=== PATIENT | female | born 1955 | race Caucasian/White ===

== ENCOUNTER 2017-01-12 19:07 | Emergency (ER) | payer BC, OTHER ==
[~2017-01-12] VITALS: Ht 152.4 cm; Wt 82.5 kg
[2017-01-12 19:28] VITALS: Ht 152.4 cm; Wt 82.5 kg
[2017-01-12] MEDS ORDERED: HYDR-3011 PO (19:39)
[2017-01-12] MEDS ORDERED: ACYC800T57 PO (19:39)
[2017-01-12] MEDS ORDERED: GABA300C16 PO (19:39)
[2017-01-12] MEDS ORDERED: IBUP-1542 PO (19:39)
--- NOTE | 2017-01-12 19:44 | ERD ---
ER Documentation Chief Complaint Date/Time DATE: 01/12/17 TIME: 19:42 Chief Complaint RASH ON LEFT BREAST IDENTIFIED 5 DAYS AGO HPI 61-year-old female presents in emergency department for complaints of left breast rash left upper back rash itching pain for 5 days. Patient describes the pain as sharp pain, radiating pain, nerve type of pain, 4/10 scale, is from left breast area to left upper back area. This was accompanied with a rash. Patient complaining of itching on affected area. Patient denies any fever or chills. Patient denies any family members with the same type of rash. Patient denies any nipple discharge. Patient denies any breast deformity. Patient did not take any medication to help with symptoms. ROS All systems reviewed and are negative except as per history of present illness. Medications Home Meds Active Scripts Hydroxyzine Hcl* (Hydroxyzine Hcl*) 25 Mg Tablet, 25 MG PO Q8H Y for ITCHING, # 30 TAB Prov:JOSH HUNT [employer] 01/12/17 Ibuprofen* (Motrin*) 600 Mg Tab, 600 MG PO Q6H Y for PAIN AND OR ELEVATED TEMP, #30 TAB Prov:JOSH HUNT. [employer] 01/12/17 Gabapentin* (Gabapentin*) 300 Mg Capsule, 300 MG PO BID, #30 CAP Prov:JOSH HUNT [employer] 01/12/17 Acyclovir* (Zovirax*) 800 Mg Tablet, 800 MG PO 5 TIMES DAILY for 7 Days, TAB Prov:JOSH HUNT [employer] O[employer] 01/12/17 Allergies Allergies: Coded Allergies: No Known Allergy (Unverified , 01/12/17) PMhx/Soc Medical and Surgical Hx: pt denies Medical Hx, pt denies Surgical Hx FmHx Family History: No coronary disease, No diabetes, No other Physical Exam Vitals Vital Signs Date Time Temp Pulse Resp B/P Pulse Ox O2 Delivery O2 Flow Rate FiO2 01/12/17 19:28 98.8 77 18 159/85 97 Physical Exam GENERAL: The patient is well developed and appropriate for usual state of health, in no apparent distress. CHEST: Clear to auscultation bilaterally. There are no rales, wheezes or rhonchi. HEART: Regular rate and rhythm. No murmurs, clicks, rubs or gallops. No S3 or S4. ABDOMEN: Soft, nontender and nondistended. Good bowel sounds. No rebound or guarding. No gross peritonitis. No gross organomegaly or masses. No Vick sign or McBurney point tenderness. BACK: No midline or flank tenderness. EXTREMITIES: Equal pulses bilaterally. There is no peripheral clubbing, cyanosis or edema. No focal swelling or erythema. Full range of motion. Grossly neurovascularly intact. NEURO: Alert and oriented. Cranial nerves 2-12 intact. Motor strength in all 4 extremities with 5/5 strength. Sensation grossly intact. Normal speech and gait. SKIN: Noted vesicular rash on the left T3 dermatome. There is no apparent ecchymosis or petechia. The skin is warm and dry. HEMATOLOGIC AND LYMPHATIC: There is no evidence of excessive bruising or lymphedema. No gross cervical, axillary, or inguinal lymphadenopathy. Procedures/MDM Medical decision making: Patient's symptoms most likely consistent with herpes zoster, shingles. No symptoms of any bacterial infection. no symptoms of any coagulopathies. No symptoms of anaphylactic shock allergic reaction. No symptoms of any eye involvement. No symptoms of any other emergencies at this time. Patient was given for acyclovir, gabapentin ibuprofen hydroxyzine, is advised to follow-up with primary care doctor in 2-3 days for reevaluation symptoms. Patient was advised to return to emergency department for worsening symptoms. Departure Diagnosis: Primary Impression: Shingles Herpes zoster complications: without complications Qualified Code: B02.9 - Herpes zoster without complication Condition: Stable Patient Instructions: Shingles (Herpes Zoster) JOSH HUNT NP Jan 12, 2017 19:44
== END 2017-01-12 19:44 | disposition home or self-care (01) ==
LOC: E/R 19:07
DX: B02.9 Zoster without complications (principal)
CPT/HCPCS: 99284